=== PATIENT | female | born 1970 | race Caucasian/White ===

== ENCOUNTER 2017-03-12 15:11 | Emergency (ER) | payer OTHER ==
[~2017-03-12] VITALS: Ht 160 cm; Wt 56.8 kg
[~2017-03-12 15:11] MED LIST: MAXZ PO; OXYC-360 PO; PREN0.01 PO
[2017-03-12 15:20] VITALS: BP 126/78; PULSE 82; RESP 12; TEMP 98.5; O2SAT 100
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
[2017-03-12] MEDS ORDERED: IBUP-232 PO (15:32)
[2017-03-12] MEDS ORDERED: CYCL5TAB PO (15:32)
== END 2017-03-12 15:47 | disposition home or self-care (01) ==
LOC: PHEFT 15:11
DX: M54.2 Cervicalgia (principal); M25.511 Pain in right shoulder; V43.52XA Car driver injured in collision with other type car in traffic accident, initial encounter
CPT/HCPCS: 99283